=== PATIENT | male | born 1940 | race Caucasian/White ===

== ENCOUNTER → 2016-11-23 | Outpatient (CLI) | payer MEDICARE ==
[2016-11-23 12:53] LABS: Non-African American GFR(MDRD) >60 (>60 ml/min/1.73 sqM)
== END | disposition home or self-care (01) ==
LOC: LABWHC1 12:18
PROVIDERS: ATTEND Psychiatry & Neurology Neurology
DX: Z13.89 Encounter for screening for other disorder (principal)
CPT/HCPCS: 36415; 82565

== ENCOUNTER → 2016-11-24 | Outpatient (CLI) | payer MEDICARE ==
--- NOTE | 2016-11-24 11:05 | MR ---
EXAMINATION TYPE: MR lumbar spine wo/w con DATE OF EXAM: 11/24/2016 10:48 AM COMPARISON: CT scan 07/26/2015 abdomen pelvis HISTORY: Back pain Contrast: 15 mL [employer] TECHNIQUE: T1 and T2 axial and sagittal images of the lumbar spine are submitted. FINDINGS: There is no abnormal signal seen within the visualized spinal cord or paraspinal soft tissu es. There is a large cyst involving the right kidney which was noted by previous CT scan measuring le ast 8 cm. However, there also appears to be increased soft tissue density along the posterior margin of the right kidney suspicious for a solid lesion or adenopathy. At T12-L1 no disc herniation or canal stenosis. Mild facet arthropathy. At L1-2 there is severe degenerative disc disease with discogenic marrow changes. Posterior spondylos is seen and there is mild to moderate bilateral foraminal encroachment but no canal stenosis. At L2-3 there is severe degenerative disc disease. There is no disc bulging greater paracentrally the left. Facet arthropathy noted. There is mild canal stenosis. Mild to moderate bilateral foraminal en croachment. At L3-4 there is severe degenerative disc disease with hypertrophic change of the facets and ligament um flavum. There is moderate bilateral foraminal encroachment and mild to moderate canal stenosis. At L4-5 there is severe degenerative disc disease with facet arthropathy. Could not exclude a spondyl olysis lysis. There is moderate to severe bilateral foraminal encroachment and borderline canal steno sis At L5-S1 there is severe degenerative disc disease with discogenic marrow changes and hypertrophic ch reed of the facets. No Canal stenosis. Mild circumferential disc bulging with moderate to severe bila teral foraminal encroachment. IMPRESSION: 1. There is a soft tissue mass posterior to the right kidney suspicious for malignancy recommends CT of the abdomen pelvis with contrast 2. Severe degenerative disc disease at all levels with multilevel foraminal encroachment and canal st enosis as discussed above.
== END ==
LOC: RADMRIMAIN 09:50
PROVIDERS: ATTEND Psychiatry & Neurology Neurology
DX: R19.09 Other intra-abdominal and pelvic swelling, mass and lump (principal); M51.37 Other intervertebral disc degeneration, lumbosacral region; M51.36 Other intervertebral disc degeneration, lumbar region; M48.07 Spinal stenosis, lumbosacral region
CPT/HCPCS: 72158; A9577